=== PATIENT | male | born 1990 | race Two or more races ===

== ENCOUNTER 2023-05-08 09:01 | Emergency (ER) | payer OTHER, SELFPAY ==
[2023-05-08 09:04] VITALS: BP 133/80; PULSE 67; RESP 16; TEMP 36.6; O2SAT 100
--- NOTE | 2023-05-08 09:38 | ED.SKABFB ---
HPI - Skin/Abscess/Foreign Bdy General Chief complaint: Skin/Abscess/Foreign Body Stated complaint: cauliflower ear Time Seen by Provider: 05/08/23 09:09 Source: patient Mode of arrival: ambulatory Limitations: no limitations History of Present Illness HPI narrative: This is a 32-year-old male that presents to the emergency department for an auricular hematoma. Reports he sustained it about 3 days ago during . He presented as he wants it drained because it has become more swollen. He was concerned it was going to block his external auditory canal. Reports some pain to the area. Is unsure how it actually happened, unsure of certain event. Denies fevers. Related Data Home Medications Medication Instructions Recorded Confirmed No Home Medications 05/08/23 05/08/23 Allergies Allergy/AdvReac Type Severity Reaction Status Date / Time codeine AdvReac Vomiting Verified 05/08/23 09:24 Review of Systems Review of Systems: CONSTITUTIONAL: Denies fever ENT: Reports hematoma All systems reviewed & are unremarkable except as noted in HPI and below PMFSH Past Medical History Medical History (Updated 05/08/23 @ 09:42 by Lynda Collins PA-C) No active medical problems Social History Social History (Updated 05/08/23 @ 09:42 by Lynda Collins PA-C) Substance use: never Exam Narrative: GENERAL: Well-appearing, well-nourished, and in no acute distress. HEAD: Normocephalic, atraumatic. EYES: EOMI. ENT: Left external ear with 2.5cm auricular hematoma. Bilateral TMs pearly curtis, non-bulging NECK: Supple. CHEST: No respiratory distress. EXTREMITIES: Normal range of motion. No edema. SKIN: Warm, dry, no rash. NEURO: No focal deficits. Alert and oriented x3. PSYCH: Normal mood and affect Course Course Emergency Course: Patient agrees with plan of care Consultations Consultation #1: Spoke with Dr. Loomis about patient and workup. He may call to see them in the office to have his hematoma drained Date: 05/08/23 Time: 09:44 Vital Signs Vital signs: Vital Signs Temperature 97.8 F 05/08/23 09:04 Pulse Rate 67 05/08/23 09:04 Respiratory Rate 16 05/08/23 09:04 Blood Pressure 133/80 05/08/23 09:04 Pulse Oximetry 100 05/08/23 09:04 Oxygen Delivery Room Air 05/08/23 09:04 Temperature 97.8 F 05/08/23 09:04 Pulse Rate 67 05/08/23 09:04 Respiratory Rate 16 05/08/23 09:04 Blood Pressure 133/80 05/08/23 09:04 Pulse Oximetry 100 05/08/23 09:04 Oxygen Delivery Room Air 05/08/23 09:04 MDM - Skin/Abscess/Foreign Bdy MDM Narrative Medical decision making narrative: Patient presents to the emergency department for an auricular hematoma. Spoke with Dr. Loomis about patient and workup. He may call to see them in the office to have his hematoma drained. Instructed to call to get in to see them in the office today Differential Diagnosis Differential diagnosis: Likely other (hematoma, abrasion) Critical Care Time Critical Care Time Critical Care Time: No Discharge Plan Discharge Clinical Impression: Hematoma of auricle Qualifiers: Encounter type: initial encounter Laterality: left Qualified Code(s): S00.432A - Contusion of left ear, initial encounter Patient Disposition: Home, Self-Care Condition: Stable Instructions: Contusion in Adults (ED) Additional Instructions: Call to make an appointment with ENT for them to drain your hematoma Prescriptions: No Action No Home Medications Follow-up/Referrals: José Manuel Loomis MD [Physician] - [facility] [Primary Care Provider] -
== END 2023-05-08 10:05 | disposition home or self-care (01) ==
PROVIDERS: Emergency Provider Physician Assistant
DX: S00.432A Contusion of left ear, initial encounter (principal); X58.XXXA Exposure to other specified factors, initial encounter; Y93.75 Activity, martial arts
CPT/HCPCS: 99282